=== PATIENT | female | born 1935 | race Caucasian/White ===

== ENCOUNTER → 2019-02-03 | Outpatient (CLI) | payer MEDICARE, OTHER ==
[~2019-02-03] MED LIST: AMLO5 PO; DOCU100 PO; DOXY100 PO; FLUR.03SO OD; GABA100 PO; ISOMON30 PO; LEVFLO500 PO; LEVSOD125 PO; MULVITMIND PO; Miralax17 GM PO; OFLO.3OPSO OP; OMEP20ER PO; PROC10 PO; UBID100 PO; [UNRECOGNIZED DRUG - OTHER]
[2019-02-03 19:31] LABS: Creatinine, Urine Random 61.5 mg/dL (27.00-270.00)
[2019-02-03 19:34] LABS: Microalb/Creat Ratio UR, Rand 35.447 mg/g (0.000-30.000); Microalbumin, Random Urine 21.8 mg/L (0.000-20.000)
== END | disposition home or self-care (01) ==
LOC: LAB 13:01 → LAB SHORT 13:01 → LAB FUT 02-02 13:45
PROVIDERS: Internal Medicine Nephrology
DX: N18.3 Chronic kidney disease, stage 3 (moderate) (principal); D63.1 Anemia in chronic kidney disease; R80.9 Proteinuria, unspecified
CPT/HCPCS: 82043; 82570

== ENCOUNTER 2020-09-17 11:39 | Observation (INO) | payer MEDICARE, OTHER ==
[~2020-09-17] VITALS: Ht 165.1 cm; Wt 162.0 kg
[~2020-09-17 11:39] MED LIST changes: +EUTHYROX125 MCG PO; +Hair, Skin & N1 EACH PO; -LEVSOD125 PO; -MULVITMIND PO
[2020-09-17 12:19] LABS: BASOPHILS ABSOLUTE AUTO 0.06 K/mm3 (0.00-0.23); BASOPHILS PERCENT AUTO 1 % (0-2); EOSINOPHILS ABSOLUTE AUTO 0.12 K/mm3 (0.00-0.68); EOSINOPHILS PERCENT AUTO 2 % (0-6); Hematocrit 45.2 % (33.0-51.0); Hemoglobin 14.2 g/dL (11.5-16.0); IMMATURE GRAN ABSOLUTE AUTO 0.01 K/mm3 (0.00-0.10); IMMATURE GRAN PERCENT AUTO 0 % (0-1); LYMPHOCYTES PERCENT AUTO 26 % (21-46); MONOCYTES ABSOLUTE AUTO 0.61 K/mm3 (0.16-1.47); MONOCYTES PERCENT AUTO 8 % (4-13); Mean Corpuscular HGB 30.9 pg (26.0-34.0); Mean Corpuscular HGB Conc 31.4 g/dL (31.5-36.5); Mean Corpuscular Volume 99 fL (80-100); Mean Platelet Volume 9.8 fL (9.1-12.4); NEUTROPHILS ABSOLUTE AUTO 4.65 K/mm3 (1.96-9.15); NEUTROPHILS PERCENT AUTO 63 % (41-73); Platelet Count 183 K/mm3 (150-400); RDW Coefficient Variation 13.4 % (11.7-14.2); RDW Standard Deviation 48.8 fL (35.1-46.3); Red Blood Cell Count 4.59 M/mm3 (3.80-5.20); White Blood Cell Count 7.35 K/mm3 (4.00-11.30)
[2020-09-17 12:32] LABS: Albumin, Blood 3.3 g/dL (3.4-5.0); Bilirubin, Total 0.6 mg/dL (0.1-1.0); Bun/Creatinine Ratio 15.8 (12.0-20.0); Calcium, Blood 9.2 mg/dL (8.5-10.1); Creatinine, Blood 1.58 mg/dL (0.40-1.00); Globulin, Blood 3.4 g/dL (2.2-4.0); Potassium, Blood 5.1 mmol/L (3.5-5.5); Total Protein, Blood 6.7 g/dL (6.4-8.2)
--- NOTE | 2020-09-17 16:30 | NUR ---
Echocardiogram using 9.0ml of agitated saline contrast performed.
--- NOTE | 2020-09-17 19:19 | NUR ---
SHIFT SUMMARY LINDSEY ARRIVED FROM ER AROUND 5PM. NEURO CHECKS NORMAL EXCEPT SLIGHT R TOES ARE SLIGHTLY NUMB/TINGLING AND THERE IS SLIGHT L (MOUTH) FACIAL DROOP NOTED. PT STATES THAT SHE FEELS BACK TO NORMAL. INDEP IN ROOM. TELE SHOWS NSR. CALL LIGHT IN REACH, REPORT GIVEN TO NIGHT NURSE
--- NOTE | 2020-09-18 04:42 | NUR ---
[employer]ER SUMMARY PT A&OX4, ABLE TO MAKE NEEDS KNOWN. PLEASANT AND COOPERATIVE TO CARE. NO C/O PAIN OR ANY DISCOMFORT THIS SHIFT. DENIES N/T OR WEAKNESS. SLIGHT FACIAL DROOP NOTED TO L SIDE OF MOUTH NOTED. NO C/O CP, SOB OR N&V. PT ON TELE NSR 73BPM. PT SUPERVISION WHEN AMBULATING TO BATHROOM. PT NPO SINCE MIDNIGHT D/T SCHED LAB DRAW IN AM FOR LIPID PANEL. PT CALM AND RESTED IN BED AT THIS TIME. BED AT LOWEST POSITION. CALL LIGHT WITHIN REACH.
[2020-09-18 05:35] LABS: CHOL/HDL RATIO 3.4; Cholesterol 190 mg/dL (50-200); HDL Cholesterol 56 mg/dL (>39); Low Density Lipoprotein Chol 114 mg/dL (0-110); Triglycerides 100 mg/dL (30-160); Very Low Density Lipoprot Chol 20 mg/dL (6-32)
[2020-09-18] MEDS ORDERED: ACET325 PO (11:35)
[2020-09-18] MEDS ORDERED: ASPI81CH PO (11:35)
[2020-09-18] MEDS ORDERED: ATOR40TA PO (11:36)
--- NOTE | 2020-09-18 12:40 | NUR ---
BRADYCARDIA THIS RN TALKED WITH DR. HOLGUIN THAT PT'S HEART RATE DROPPING TO LOW 40'S AT TIMES FROM LOW 50'S. PT IS ASYMPTOMATIC. DR. HOLGUIN STILL WANTS TO DISCHARGE PT.
--- NOTE | 2020-09-18 14:55 | NUR ---
DISCHARGE PT DISCHARGED TO HOME. THIS RN EXPLAINED DISCHARGE INSTRUCTIONS TO PT AND SHE REPORTS SHE UNDERSTANDS. IV REMOVED W/O DIFFICULTY. BELONGINGS WITH PT. PT TRANSFERRED TO PRIVATE VEHICLE VIA WHEELCHAIR.
== END 2020-09-18 14:16 | disposition home or self-care (01) ==
LOC: ER 11:39 → MEDS 11:40
PROVIDERS: Emergency Medicine; Nurse Practitioner Acute Care; ADMIT Internal Medicine
DX: G45.9 Transient cerebral ischemic attack, unspecified (principal); I12.9 Hypertensive chronic kidney disease with stage 1 through stage 4 chronic kidney disease, or unspecified chronic kidney disease; N18.30 Chronic kidney disease, stage 3 unspecified; E78.5 Hyperlipidemia, unspecified; I73.00 Raynaud's syndrome without gangrene; E89.0 Postprocedural hypothyroidism; G62.9 Polyneuropathy, unspecified; K21.9 Gastro-esophageal reflux disease without esophagitis; Z86.73 Personal history of transient ischemic attack (TIA), and cerebral infarction without residual deficits; Z87.891 Personal history of nicotine dependence; Z79.899 Other long term (current) drug therapy; Z88.1 Allergy status to other antibiotic agents; Z88.5 Allergy status to narcotic agent; Z88.8 Allergy status to other drugs, medicaments and biological substances; Z88.0 Allergy status to penicillin; Z91.040 Latex allergy status; Z91.041 Radiographic dye allergy status; Z23 Encounter for immunization
CPT/HCPCS: 36415; 70450; 80053; 80061; 85025; 93005; 93010; 93306; 93880; 96372; 99285-25; A9270; G0378; J1650

== ENCOUNTER 2020-12-02 07:30 | Emergency (ER) | payer MEDICARE, OTHER ==
[~2020-12-02] VITALS: Ht 167.6 cm; Wt 72.6 kg
[~2020-12-02 07:30] MED LIST changes: +ACET325 PO; +ASPI81CH PO; +ATOR40TA PO
[2020-12-02] MEDS ORDERED: CLOP75 PO (08:02)
[2020-12-02 08:58] LABS: BASOPHILS ABSOLUTE AUTO 0.05 K/mm3 (0.00-0.23); BASOPHILS PERCENT AUTO 1 % (0-2); EOSINOPHILS ABSOLUTE AUTO 0.05 K/mm3 (0.00-0.68); EOSINOPHILS PERCENT AUTO 1 % (0-6); Hematocrit 40.6 % (33.0-51.0); Hemoglobin 13.1 g/dL (11.5-16.0); IMMATURE GRAN ABSOLUTE AUTO 0.02 K/mm3 (0.00-0.10); IMMATURE GRAN PERCENT AUTO 0 % (0-1); LYMPHOCYTES ABSOLUTE AUTO 1.11 K/mm3 (0.84-5.20); LYMPHOCYTES PERCENT AUTO 13 % (21-46); MONOCYTES ABSOLUTE AUTO 0.64 K/mm3 (0.16-1.47); MONOCYTES PERCENT AUTO 7 % (4-13); Mean Corpuscular HGB Conc 32.3 g/dL (31.5-36.5); Mean Corpuscular Volume 96 fL (80-100); Mean Platelet Volume 9.6 fL (9.1-12.4); NEUTROPHILS ABSOLUTE AUTO 6.74 K/mm3 (1.96-9.15); NEUTROPHILS PERCENT AUTO 78 % (41-73); Platelet Count 213 K/mm3 (150-400); RDW Coefficient Variation 12.9 % (11.7-14.2); RDW Standard Deviation 45.2 fL (35.1-46.3); Red Blood Cell Count 4.23 M/mm3 (3.80-5.20); White Blood Cell Count 8.61 K/mm3 (4.00-11.30)
[2020-12-02 09:17] LABS: Albumin, Blood 2.8 g/dL (3.4-5.0); Albumin/Globulin Ratio 0.8 (0.8-1.8); Bilirubin, Total 0.4 mg/dL (0.1-1.0); Bun/Creatinine Ratio 13.3 (12.0-20.0); Calcium, Blood 8.6 mg/dL (8.5-10.1); Creatinine, Blood 1.5 mg/dL (0.40-1.00); Globulin, Blood 3.3 g/dL (2.2-4.0); Potassium, Blood 4.5 mmol/L (3.5-5.5); Total Protein, Blood 6.1 g/dL (6.4-8.2); Uric Acid, Blood 5.2 mg/dL (2.6-6.0)
[2020-12-02] MEDS ORDERED: Voltaren100 GM TOP (09:44)
[2020-12-02] MEDS ORDERED: HYDR1TAB94 PO (09:44)
== END 2020-12-02 10:10 | disposition home or self-care (01) ==
LOC: ER 07:30
PROVIDERS: Physician Assistant
DX: M19.041 Primary osteoarthritis, right hand (principal); N18.30 Chronic kidney disease, stage 3 unspecified; Z91.040 Latex allergy status; Z88.0 Allergy status to penicillin; Z88.1 Allergy status to other antibiotic agents; Z88.5 Allergy status to narcotic agent; Z79.02 Long term (current) use of antithrombotics/antiplatelets; Z79.899 Other long term (current) drug therapy; Z87.891 Personal history of nicotine dependence
CPT/HCPCS: 29125; 36415; 73030; 73110; 80053; 84145; 84550; 85025; 99283-25

== ENCOUNTER → 2021-01-08 | Outpatient (CLI) | payer MEDICARE, OTHER ==
[~2021-01-08] MED LIST changes: +CLOP75 PO; +HYDR1TAB94 PO; +Voltaren100 GM TOP
[2021-01-08 14:19] LABS: Stool Occult Bld Immuno 1 Negative (NEGATIVE)
== END ==
LOC: LAB SHORT 10:20 → PLD 10:20
PROVIDERS: Internal Medicine Gastroenterology
DX: Z09 Encounter for follow-up examination after completed treatment for conditions other than malignant neoplasm (principal); Z86.010 Personal history of colon polyps
CPT/HCPCS: 82274

== ENCOUNTER 2021-07-01 09:37 | Day surgery (SDC) | payer MEDICARE, OTHER ==
[~2021-07-01] VITALS: Ht 165.1 cm; Wt 74.9 kg
[~2021-07-01 09:37] MED LIST changes: +ALBU90OI; +FAMO20; +Flovent Diskus50 MCG INH; +GABA100; +MIRALAX17 GM PO; +VITAMIN B125000 MC1 PO; +VITAMIN D2
--- NOTE | 2021-07-01 14:08 | NUR ---
Patient up to Ambulate independently. Gait steady. Discharge instructions reviewed with patient. Patient verbalizes understanding. Copy given to patient to take home. Discharged via wheelchair to private car for ride home.
== END 2021-07-01 13:50 | disposition home or self-care (01) ==
LOC: ORSCMMR 09:37 → ORD 11:00 → ORSCMMR 11:00
PROVIDERS: Surgery
PROC: 0HBU0ZX Excision of Left Breast, Open Approach, Diagnostic (ICD-10-PCS; principal; 2021-07-01 11:00)
DX: N63.32 Unspecified lump in axillary tail of the left breast (principal); D18.09 Hemangioma of other sites; I10 Essential (primary) hypertension; J45.909 Unspecified asthma, uncomplicated; K21.9 Gastro-esophageal reflux disease without esophagitis; N18.30 Chronic kidney disease, stage 3 unspecified; Z87.891 Personal history of nicotine dependence; I69.351 Hemiplegia and hemiparesis following cerebral infarction affecting right dominant side; Z79.899 Other long term (current) drug therapy; Z79.82 Long term (current) use of aspirin
CPT/HCPCS: 88305; J0690; J1100; J1885; J2405; J2704; J3010; J7120

== ENCOUNTER → 2022-06-15 | Outpatient (CLI) | payer MEDICARE, OTHER | END | disposition home or self-care (01) | LOC: LAB SHORT 14:20 → LAB 14:20 | DX: N39.0 Urinary tract infection, site not specified (principal) | CPT/HCPCS: 87077; 87086; 87186 ==

== ENCOUNTER → 2023-04-17 | Outpatient (CLI) | payer MEDICARE, OTHER | END | disposition home or self-care (01) | LOC: LAB 09:22 → LAB SHORT 09:22 | DX: R06.00 Dyspnea, unspecified (principal) | CPT/HCPCS: 83880 ==

== ENCOUNTER → 2023-05-26 | Outpatient (CLI) | payer MEDICARE, OTHER | END | disposition home or self-care (01) | LOC: LAB SHORT 10:57 → LAB 10:57 | DX: R30.0 Dysuria (principal) | CPT/HCPCS: 87077; 87086; 87186 ==

== ENCOUNTER 2023-09-11 15:46 | Emergency (ER) | payer MEDICARE, OTHER ==
[~2023-09-11] VITALS: Ht 167.6 cm; Wt 59.0 kg
[2023-09-11 20:09] VITALS: BP 136/74
[2023-09-11] MEDS ORDERED: Norco 5-325 Ta1 EACH PO (20:18)
[2023-09-11] MEDS ORDERED: ULTRA-LIGHT RO1 EACH MC (20:18)
== END 2023-09-11 20:35 | disposition home or self-care (01) ==
LOC: ER 15:46
DX: S83.92XA Sprain of unspecified site of left knee, initial encounter (principal); N18.30 Chronic kidney disease, stage 3 unspecified; G62.9 Polyneuropathy, unspecified; Z86.73 Personal history of transient ischemic attack (TIA), and cerebral infarction without residual deficits; Z87.891 Personal history of nicotine dependence; Z79.82 Long term (current) use of aspirin; Z79.02 Long term (current) use of antithrombotics/antiplatelets; Z79.899 Other long term (current) drug therapy; Z88.0 Allergy status to penicillin; Z88.1 Allergy status to other antibiotic agents; Z88.5 Allergy status to narcotic agent; Z88.7 Allergy status to serum and vaccine; Z88.8 Allergy status to other drugs, medicaments and biological substances; X50.9XXA Other and unspecified overexertion or strenuous movements or postures, initial encounter; Y92.002 Bathroom of unspecified non-institutional (private) residence as the place of occurrence of the external cause; Y93.01 Activity, walking, marching and hiking
CPT/HCPCS: 29505; 72170; 73562-LT; 99283-25; A9270

== ENCOUNTER 2025-01-10 16:32 | Emergency (ER) | payer MEDICARE, OTHER ==
[~2025-01-10] VITALS: Ht 165.1 cm; Wt 67.1 kg
[~2025-01-10 16:32] MED LIST changes: +Norco 5-325 Ta1 EACH PO; +ULTRA-LIGHT RO1 EACH MC
[2025-01-10 18:05] LABS: BASOPHILS ABSOLUTE AUTO 0.01 K/mm3 (0.00-0.23); BASOPHILS PERCENT AUTO 0 % (0-2); EOSINOPHILS ABSOLUTE AUTO 0.06 K/mm3 (0.00-0.68); EOSINOPHILS PERCENT AUTO 1 % (0-6); Hemoglobin 13.1 g/dL (11.5-16.0); IMMATURE GRAN ABSOLUTE AUTO 0.04 K/mm3 (0.00-0.10); IMMATURE GRAN PERCENT AUTO 1 % (0-1); LYMPHOCYTES ABSOLUTE AUTO 0.61 K/mm3 (0.84-5.20); LYMPHOCYTES PERCENT AUTO 7 % (21-46); MONOCYTES ABSOLUTE AUTO 0.38 K/mm3 (0.16-1.47); MONOCYTES PERCENT AUTO 4 % (4-13); Mean Corpuscular HGB 31.3 pg (26.0-34.0); Mean Corpuscular Volume 98 fL (80-100); Mean Platelet Volume 10.1 fL (9.1-12.4); NEUTROPHILS ABSOLUTE AUTO 7.49 K/mm3 (1.96-9.15); NEUTROPHILS PERCENT AUTO 87 % (41-73); Platelet Count 163 K/mm3 (150-400); RDW Coefficient Variation 13.8 % (11.7-14.2); RDW Standard Deviation 50.2 fL (35.1-46.3); Red Blood Cell Count 4.18 M/mm3 (3.80-5.20); White Blood Cell Count 8.59 K/mm3 (4.00-11.30)
[2025-01-10] MEDS ORDERED: Acetaminophen 500 MG Tab PO ONE (18:10)
[2025-01-10 18:16] LABS: Bilirubin, Total 0.5 mg/dL (0.1-1.0); Calcium, Blood 8.7 mg/dL (8.5-10.1); Creatinine, Blood 1.55 mg/dL (0.40-1.00); Potassium, Blood 4.6 mmol/L (3.5-5.5)
[2025-01-10 19:15] VITALS: BP 180/51
[2025-01-10] MEDS ORDERED: AmLODIPine Besylate 5 MG Tab PO ONE (19:30)
== END 2025-01-10 19:45 | disposition home or self-care (01) ==
LOC: ER 16:32
PROVIDERS: Emergency Medicine
DX: I16.0 Hypertensive urgency (principal); I12.9 Hypertensive chronic kidney disease with stage 1 through stage 4 chronic kidney disease, or unspecified chronic kidney disease; N18.30 Chronic kidney disease, stage 3 unspecified; E89.0 Postprocedural hypothyroidism; Z85.850 Personal history of malignant neoplasm of thyroid; Z86.73 Personal history of transient ischemic attack (TIA), and cerebral infarction without residual deficits; Z87.891 Personal history of nicotine dependence; Z88.7 Allergy status to serum and vaccine; Z88.0 Allergy status to penicillin; Z88.1 Allergy status to other antibiotic agents; Z88.5 Allergy status to narcotic agent; Z88.8 Allergy status to other drugs, medicaments and biological substances; Z91.041 Radiographic dye allergy status; Z91.040 Latex allergy status; Z79.82 Long term (current) use of aspirin; Z79.01 Long term (current) use of anticoagulants; Z79.890 Hormone replacement therapy; Z79.899 Other long term (current) drug therapy
CPT/HCPCS: 70450; 80053; 85025; 93005; 93010; 99285-25; A9270

== ENCOUNTER 2025-06-17 14:14 | Emergency (ER) | payer MEDICARE, OTHER ==
[~2025-06-17] VITALS: Ht 162.6 cm; Wt 66.7 kg
[2025-06-17 14:46] VITALS: BP 186/59
[2025-06-17] MEDS ORDERED: DOXY100 PO (14:52)
== END 2025-06-17 14:57 | disposition home or self-care (01) ==
LOC: ER 14:14
DX: J18.9 Pneumonia, unspecified organism (principal); I12.9 Hypertensive chronic kidney disease with stage 1 through stage 4 chronic kidney disease, or unspecified chronic kidney disease; N18.30 Chronic kidney disease, stage 3 unspecified; Z79.890 Hormone replacement therapy; Z79.82 Long term (current) use of aspirin; Z79.899 Other long term (current) drug therapy; Z88.7 Allergy status to serum and vaccine; Z88.0 Allergy status to penicillin; Z88.1 Allergy status to other antibiotic agents; Z88.5 Allergy status to narcotic agent; Z91.040 Latex allergy status; Z87.891 Personal history of nicotine dependence; R05.8 Other specified cough
CPT/HCPCS: 71046; 99282

== ENCOUNTER 2025-06-25 00:54 | Day surgery (SDC) | payer MEDICARE, OTHER ==
[2025-06-25] MEDS ORDERED: Sod Ferric Gluc Complx/Sucrose 125 MG in NS 100 ML IV SCH (01:00)
[2025-06-25 14:55] VITALS: BP 147/42
== END 2025-06-25 16:15 | disposition home or self-care (01) ==
LOC: ATC 00:54
DX: D50.0 Iron deficiency anemia secondary to blood loss (chronic) (principal); I25.10 Atherosclerotic heart disease of native coronary artery without angina pectoris; I12.9 Hypertensive chronic kidney disease with stage 1 through stage 4 chronic kidney disease, or unspecified chronic kidney disease; N18.9 Chronic kidney disease, unspecified; E78.5 Hyperlipidemia, unspecified; G50.0 Trigeminal neuralgia; K21.9 Gastro-esophageal reflux disease without esophagitis; E89.0 Postprocedural hypothyroidism; Z87.891 Personal history of nicotine dependence; Z79.890 Hormone replacement therapy; Z79.02 Long term (current) use of antithrombotics/antiplatelets; Z79.899 Other long term (current) drug therapy; Z88.0 Allergy status to penicillin; Z88.1 Allergy status to other antibiotic agents; Z88.5 Allergy status to narcotic agent; Z88.8 Allergy status to other drugs, medicaments and biological substances; Z90.710 Acquired absence of both cervix and uterus
CPT/HCPCS: 96365

== ENCOUNTER 2025-07-02 01:19 | Day surgery (SDC) | payer MEDICARE, OTHER ==
[~2025-07-02 01:19] MED LIST changes: +Sod Ferric Gluc Complx/Sucrose 125 MG in NS 100 ML IV SCH
[2025-07-02 14:51] VITALS: BP 166/60
== END 2025-07-02 16:00 | disposition home or self-care (01) ==
LOC: ATC 01:19
DX: D50.0 Iron deficiency anemia secondary to blood loss (chronic) (principal); I12.9 Hypertensive chronic kidney disease with stage 1 through stage 4 chronic kidney disease, or unspecified chronic kidney disease; N18.9 Chronic kidney disease, unspecified; I25.10 Atherosclerotic heart disease of native coronary artery without angina pectoris; E78.5 Hyperlipidemia, unspecified; G50.0 Trigeminal neuralgia; K21.9 Gastro-esophageal reflux disease without esophagitis; E89.0 Postprocedural hypothyroidism; Z79.02 Long term (current) use of antithrombotics/antiplatelets; Z79.890 Hormone replacement therapy; Z79.899 Other long term (current) drug therapy; Z87.891 Personal history of nicotine dependence; Z88.0 Allergy status to penicillin; Z88.1 Allergy status to other antibiotic agents; Z88.5 Allergy status to narcotic agent; Z88.8 Allergy status to other drugs, medicaments and biological substances; Z90.710 Acquired absence of both cervix and uterus
CPT/HCPCS: 96365; J2916

== ENCOUNTER 2025-07-10 00:27 | Day surgery (SDC) | payer MEDICARE, OTHER ==
[~2025-07-10 00:27] MED LIST changes: -Sod Ferric Gluc Complx/Sucrose 125 MG in NS 100 ML IV SCH
[2025-07-10] MEDS ORDERED: Sod Ferric Gluc Complx/Sucrose 125 MG in NS 100 ML IV SCH (06:00)
[2025-07-10 13:49] VITALS: BP 139/42
== END 2025-07-10 14:47 | disposition home or self-care (01) ==
LOC: ATC 00:27
DX: D50.0 Iron deficiency anemia secondary to blood loss (chronic) (principal); I12.9 Hypertensive chronic kidney disease with stage 1 through stage 4 chronic kidney disease, or unspecified chronic kidney disease; N18.9 Chronic kidney disease, unspecified; I25.10 Atherosclerotic heart disease of native coronary artery without angina pectoris; E78.5 Hyperlipidemia, unspecified; E03.9 Hypothyroidism, unspecified; J45.909 Unspecified asthma, uncomplicated; Z88.1 Allergy status to other antibiotic agents; Z88.8 Allergy status to other drugs, medicaments and biological substances; Z88.5 Allergy status to narcotic agent; Z88.0 Allergy status to penicillin; Z79.899 Other long term (current) drug therapy; Z79.890 Hormone replacement therapy
CPT/HCPCS: 96365; J2916

== ENCOUNTER 2025-07-16 00:39 | Day surgery (SDC) | payer MEDICARE, OTHER ==
[2025-07-16] MEDS ORDERED: Sod Ferric Gluc Complx/Sucrose 125 MG in NS 100 ML IV SCH (01:00)
[2025-07-16] MEDS ORDERED: PRED20 PO (14:04)
[2025-07-16] MEDS ORDERED: DOXY100 PO (14:04)
[2025-07-16 14:05] VITALS: BP 167/59
== END 2025-07-16 15:10 | disposition home or self-care (01) ==
LOC: ATC 00:39
DX: D50.0 Iron deficiency anemia secondary to blood loss (chronic) (principal); I25.10 Atherosclerotic heart disease of native coronary artery without angina pectoris; I12.9 Hypertensive chronic kidney disease with stage 1 through stage 4 chronic kidney disease, or unspecified chronic kidney disease; N18.9 Chronic kidney disease, unspecified; E78.5 Hyperlipidemia, unspecified; G50.0 Trigeminal neuralgia; E89.0 Postprocedural hypothyroidism; Z79.890 Hormone replacement therapy; Z87.891 Personal history of nicotine dependence; Z79.02 Long term (current) use of antithrombotics/antiplatelets; Z79.899 Other long term (current) drug therapy; Z88.0 Allergy status to penicillin; Z88.1 Allergy status to other antibiotic agents; Z88.5 Allergy status to narcotic agent; Z88.8 Allergy status to other drugs, medicaments and biological substances; Z86.73 Personal history of transient ischemic attack (TIA), and cerebral infarction without residual deficits; J18.9 Pneumonia, unspecified organism; J98.8 Other specified respiratory disorders; M35.9 Systemic involvement of connective tissue, unspecified
CPT/HCPCS: 71046; 96365; J2916

== ENCOUNTER 2025-07-23 00:22 | Day surgery (SDC) | payer MEDICARE, OTHER ==
[~2025-07-23 00:22] MED LIST changes: +PRED20 PO
[2025-07-23] MEDS ORDERED: Sod Ferric Gluc Complx/Sucrose 125 MG in NS 100 ML IV SCH (06:00)
[2025-07-23 13:51] VITALS: BP 163/45
== END 2025-07-23 15:03 | disposition home or self-care (01) ==
LOC: ATC 00:22
DX: D50.0 Iron deficiency anemia secondary to blood loss (chronic) (principal); I25.10 Atherosclerotic heart disease of native coronary artery without angina pectoris; I12.9 Hypertensive chronic kidney disease with stage 1 through stage 4 chronic kidney disease, or unspecified chronic kidney disease; N18.9 Chronic kidney disease, unspecified; K21.9 Gastro-esophageal reflux disease without esophagitis; E78.5 Hyperlipidemia, unspecified; G50.0 Trigeminal neuralgia; E89.0 Postprocedural hypothyroidism; Z87.891 Personal history of nicotine dependence; Z79.02 Long term (current) use of antithrombotics/antiplatelets; Z79.890 Hormone replacement therapy; Z79.899 Other long term (current) drug therapy; Z88.0 Allergy status to penicillin; Z88.1 Allergy status to other antibiotic agents; Z88.5 Allergy status to narcotic agent; Z88.8 Allergy status to other drugs, medicaments and biological substances; Z86.73 Personal history of transient ischemic attack (TIA), and cerebral infarction without residual deficits
CPT/HCPCS: J2916